=== PATIENT | female | born 1950 | race Hispanic/Latino ===

== ENCOUNTER → 2018-09-19 | Outpatient (CLI) | payer OTHER | END | disposition home or self-care (01) | LOC: OIH 16:26 | PROVIDERS: ATTEND Family Medicine | DX: M53.3 Sacrococcygeal disorders, not elsewhere classified (principal) | CPT/HCPCS: 72220 ==

== ENCOUNTER → 2019-06-24 | Outpatient (CLI) | payer OTHER | END | disposition home or self-care (01) | LOC: SHCH 14:22 | PROVIDERS: ATTEND Internal Medicine Cardiovascular Disease | DX: I08.0 Rheumatic disorders of both mitral and aortic valves (principal); R55 Syncope and collapse; I49.5 Sick sinus syndrome | CPT/HCPCS: 93306; 93970 ==

== ENCOUNTER → 2020-04-06 | Outpatient (CLI) | payer OTHER | END | disposition home or self-care (01) | LOC: OIH 14:54 | PROVIDERS: ATTEND Internal Medicine Cardiovascular Disease | DX: Z13.6 Encounter for screening for cardiovascular disorders (principal) | CPT/HCPCS: 75571 ==

== ENCOUNTER → 2020-07-21 | Outpatient (CLI) | payer MEDICARE | END | disposition home or self-care (01) | LOC: OIH 13:06 | PROVIDERS: ATTEND Internal Medicine | DX: M19.042 Primary osteoarthritis, left hand (principal); M19.041 Primary osteoarthritis, right hand ==

== ENCOUNTER → 2021-03-07 | Outpatient (CLI) | payer MEDICARE | END | disposition home or self-care (01) | LOC: SHCH 08:56 | PROVIDERS: ATTEND Internal Medicine Cardiovascular Disease | DX: I08.3 Combined rheumatic disorders of mitral, aortic and tricuspid valves (principal); R55 Syncope and collapse; E78.5 Hyperlipidemia, unspecified | CPT/HCPCS: 93306; 93356 ==

== ENCOUNTER → 2022-01-13 | Outpatient (CLI) | payer MEDICARE | END | disposition home or self-care (01) | LOC: RAH 13:17 | PROVIDERS: ATTEND Physician Assistant | DX: M41.85 Other forms of scoliosis, thoracolumbar region (principal); M54.16 Radiculopathy, lumbar region | CPT/HCPCS: 72082 ==

== ENCOUNTER → 2022-06-19 | Outpatient (CLI) | payer MEDICARE | END | disposition home or self-care (01) | LOC: RAH 07:37 | PROVIDERS: ATTEND Internal Medicine Gastroenterology | DX: R14.0 Abdominal distension (gaseous) (principal); R68.81 Early satiety | CPT/HCPCS: 78264; A9541 ==

== ENCOUNTER → 2022-10-26 | Outpatient (CLI) | payer MEDICARE ==
[2022-10-26 16:46] LABS: CHOLESTEROL 209 mg/dL (<200); HDL CHOLESTEROL 65 mg/dL (35-85); LDL DIRECT 127 mg/dL (0-99); TRIGLYCERIDES 145 mg/dL (30-200)
== END | disposition home or self-care (01) ==
LOC: LAB 11:44
PROVIDERS: ATTEND Physician Assistant
DX: I10 Essential (primary) hypertension (principal); E78.5 Hyperlipidemia, unspecified
CPT/HCPCS: 36415; 80061

== ENCOUNTER 2023-07-30 04:58 | Observation (INO) | payer MEDICARE ==
[2023-07-25 10:20] VITALS: BP 139/76; PULSE 88; RESP 19
[2023-07-25 13:06] LABS: APPEARANCE,URINE CLEAR (CLEAR); BILIRUBIN,URINE NEGATIVE (NEGATIVE); COLOR,URINE LIGHT-YELLOW (YELLOW); GLUCOSE, URINE (UA) NEGATIVE (NEGATIVE); KETONES,URINE NEGATIVE (NEGATIVE); LEUKOCYTE ESTERASE ,URINE NEGATIVE Leu/uL (NEGATIVE); NITRATE,URINE NEGATIVE (NEGATIVE); PROTEIN,URINE NEGATIVE (NEGATIVE); UROBILINOGEN,URINE 0.2 mg/dL (0.2-1.0)
[2023-07-25 13:15] LABS: ADD UA MICROSCOPIC YES
[2023-07-25 13:19] LABS: BACTERIA,URINE RARE /HPF (None Seen); MUCUS,URINE RARE LPF (None Seen); SQUAMOUS EPITHELIAL CELL,UR RARE /HPF (0-2); WBC,URINE 0-1 /HPF (0-1)
[2023-07-30] VITALS (37 sets, daily range): BP systolic 99–141; BP diastolic 59–87; PULSE 66–102; RESP 13–17; O2SAT 99
[~2023-07-30] VITALS: Ht 158.8 cm; Wt 75.8 kg
[~2023-07-30 04:58] MED LIST: CALC-987 PO; FLEC50TA3 PO; LEVO75CA5 PO; MELO-108 PO; MV-M1TAB57 PO; ROSU5TAB12 PO; VITAMIN B12 PO; ZINC50TA64 PO
[2023-07-30] MEDS ORDERED: LACTATED RINGERS 1000ML 1,000 ML IV ONE (06:14)
[2023-07-30] MEDS ORDERED: 0.9%NACL 48.45 ML, ROPIVACAINE 0.5% 49.25ML, EPINEPH 0.5MG KETOROLAC 30MG,CLONIDINE 80MCG IV PRN ×5 (07:00)
[2023-07-30] MEDS: CEFAZOLIN SODIUM 2 GM VIAL ONE ×2 (07:01→12:23)
[2023-07-30] MEDS ORDERED: PROPOFOL 10 MG/ML 20ML VIAL IV ONE (11:05)
[2023-07-30] MEDS ORDERED: FENTANYL CITRATE PF 50 MCG/1 ML 2ML VIAL ONE ×2 (11:05→11:26)
[2023-07-30] MEDS ORDERED: MIDAZOLAM HCL 1 MG/ML 2ML VIAL ONE (11:05)
[2023-07-30] MEDS ORDERED: GENTAMICIN SULFATE 80 MG/2 ML VIAL ONE (11:15)
[2023-07-30] MEDS ORDERED: CEFAZOLIN SODIUM 1 GM VIAL ONE (11:15)
[2023-07-30] MEDS ORDERED: PROPOFOL 1000 MG/100 ML 100 ML IV ONE (11:24)
[2023-07-30] MEDS ORDERED: PHENYLEPHRINE HCL 10 MG/ML 1ML VIAL IV ONE (11:47)
[2023-07-30] MEDS ORDERED: ONDANSETRON 4MG INJ ONE (11:53)
[2023-07-30] MEDS: TRANEXAMIC ACID 1000MG/10ML ONE ×2 (11:55→12:15)
[2023-07-30] MEDS ORDERED: MEPERIDINE-PF 25 MG/ML SYG ONE ×2 (14:32→14:43)
[2023-07-30] MEDS: 0.9%NACL 1000ML 1,000 ML IV SCH (20:55)
[2023-07-30] MEDS ORDERED: ACETAMINOPHEN 325 MG TAB PO SCH (21:00)
[2023-07-30] MEDS ORDERED: MAG/ALUM/SIMETH 30 ML UDCUP PO PRN (21:00)
[2023-07-30] MEDS ORDERED: TRAMADOL HCL 50 MG TABLET PO PRN (21:00)
[2023-07-30] MEDS ORDERED: NON-FORMULARY MEDICATION 1 EACH (Rosuvastatin Calcium 5 MG) PO SCH (21:00)
[2023-07-30] MEDS ORDERED: BENZOCAINE/MENTH/CETYLPYRD CL 1 EACH LOZENGE MM PRN (21:00)
[2023-07-30] MEDS ORDERED: DIPHENOXYLATE HCL/ATROPINE 2.5/0.025 MG TAB PO PRN (21:00)
[2023-07-30] MEDS ORDERED: DiphenhydrAMINE HCL 50 MG/ML VIAL IM PRN (21:00)
[2023-07-30] MEDS ORDERED: LACTULOSE 20 GM/30 ML UDCUP PO PRN (21:00)
[2023-07-30] MEDS ORDERED: ACETAMINOPHEN 325 MG TAB PO PRN ×2 (21:00)
[2023-07-30] MEDS ORDERED: HYDROMORPHONE PCA 10 MG/50 ML 50 ML IV PRN (21:00)
[2023-07-30] MEDS ORDERED: DIPHENHYDRAMINE HCL 25 MG CAPSULE PO SCH (21:00)
[2023-07-30] MEDS ORDERED: FLECAINIDE ACETATE 50 MG PO SCH (21:00)
[2023-07-30] MEDS ORDERED: ONDANSETRON 4MG INJ IVP PRN (21:00)
[2023-07-30] MEDS: CEFAZOLIN SODIUM 2 GM VIAL IVPB SCH (21:21)
[2023-07-30] MEDS: ATORVASTATIN 20 MG TABLET PO SCH (21:21)
[2023-07-30] MEDS: FLECAINIDE ACETATE 100 MG TABLET PO SCH (21:21)
[2023-07-31] VITALS (9 sets, daily range): BP systolic 99–130; BP diastolic 53–78; PULSE 80–100; RESP 16–20; O2SAT 94–97
[2023-07-31 03:53] LABS: HEMATOCRIT 35.6 % (36-48); MEAN CORPUSCULAR HEMOGLOBIN 30.3 pg (27.0-33.0); MEAN CORPUSCULAR HGB CONC 32.3 g/dL (32.0-36.0); MEAN CORPUSCULAR VOLUME 93.7 fL (79-99); RED BLOOD CELL COUNT(AUTO) 3.8 MIL/uL (4.00-5.50); RED CELL DISTRIBUTION WIDTH 13.9 % (11.0-15.5); WHITE BLOOD COUNT (AUTO) 7.6 K/uL (4.8-10.8)
[2023-07-31] MEDS: CEFAZOLIN SODIUM 2 GM VIAL IVPB SCH (04:13)
[2023-07-31 04:16] LABS: HEMOGLOBIN A1C 5.6 % (4.0-6.0)
[2023-07-31 04:30] LABS: CREATININE 0.7 mg/dL (0.5-1.5); THYROID STIMULATING HORMONE 1.36 uIU/mL (0.36-3.74)
[2023-07-31] MEDS: LEVOTHYROXINE 75 MCG TABLET PO SCH (06:02)
[2023-07-31] MEDS: 0.9%NACL 1000ML 1,000 ML IV SCH ×2 (07:00→19:57)
[2023-07-31] MEDS ORDERED: NON-FORMULARY MEDICATION 1 EACH (Levothyroxine Sodium (Levothyroxine) 75 MCG) PO SCH (07:30)
[2023-07-31] MEDS: FLECAINIDE ACETATE 100 MG TABLET PO SCH ×2 (08:40→19:51)
[2023-07-31] MEDS: RIVAROXABAN 10 MG TABLET PO SCH (08:40)
[2023-07-31] MEDS: ATORVASTATIN 20 MG TABLET PO SCH (19:50)
[2023-08-01] MEDS: 0.9%NACL 1000ML 1,000 ML IV SCH (02:33)
[2023-08-01 04:33] LABS: HEMATOCRIT 32.9 % (36-48); MEAN CORPUSCULAR HEMOGLOBIN 31.3 pg (27.0-33.0); MEAN CORPUSCULAR HGB CONC 33.7 g/dL (32.0-36.0); MEAN CORPUSCULAR VOLUME 92.7 fL (79-99); RED BLOOD CELL COUNT(AUTO) 3.55 MIL/uL (4.00-5.50); WHITE BLOOD COUNT (AUTO) 8.4 K/uL (4.8-10.8)
[2023-08-01 04:52] LABS: CREATININE 0.6 mg/dL (0.5-1.5); POTASSIUM 3.5 mmol/L (3.5-5.1)
[2023-08-01 05:00] VITALS: BP 125/74; PULSE 102; RESP 20
[2023-08-01] MEDS: LEVOTHYROXINE 75 MCG TABLET PO SCH (05:00)
[2023-08-01 08:00] VITALS: BP 129/70; PULSE 88; RESP 18
[2023-08-01] MEDS: RIVAROXABAN 10 MG TABLET PO SCH (08:36)
[2023-08-01] MEDS: FLECAINIDE ACETATE 100 MG TABLET PO SCH (08:38)
[2023-08-01 08:42] VITALS: O2SAT 93
[2023-08-01 11:59] VITALS: BP 123/72; PULSE 89; RESP 18
== END 2023-08-01 15:10 ==
LOC: DAH 04:58 → DAHIP 04:59 → DAH 04:59 → 4BH 19:55
PROVIDERS: ADMIT Orthopaedic Surgery; ATTEND Orthopaedic Surgery
DX: M17.11 Unilateral primary osteoarthritis, right knee (principal); E11.9 Type 2 diabetes mellitus without complications; E78.5 Hyperlipidemia, unspecified; E03.9 Hypothyroidism, unspecified; M81.0 Age-related osteoporosis without current pathological fracture; I48.91 Unspecified atrial fibrillation; I10 Essential (primary) hypertension; M41.9 Scoliosis, unspecified; Z85.3 Personal history of malignant neoplasm of breast; Z90.710 Acquired absence of both cervix and uterus; Z87.19 Personal history of other diseases of the digestive system; Z90.12 Acquired absence of left breast and nipple; Z79.899 Other long term (current) drug therapy
CPT/HCPCS: 87088; 81001; 87641; 27447; 96365; 96366 ×3; 96375; 97161; 97012; 97116 ×5; 97530 ×11; 93005; 96376; 83036; 84443; 80061; 80048 ×2; 85027 ×2; 36415 ×2; A6260; G0378 ×45; A4510; A4663; J7120 ×2; A4215 ×2; A4649 ×3; J3010 ×2; J0690 ×4; J3490; J1170; J1580; J2250; J2704; J2405; J2175 ×2; J2371; A6223; C1763 ×2; C1776; A5120; A4223; A4222; A4221; A6450; J7030

== ENCOUNTER → 2023-10-12 | Outpatient (CLI) | payer MEDICARE ==
[2023-10-12 12:23] LABS: BASOPHILS # (AUTO) 0.01 K/uL (0.00-0.20); BASOPHILS % (AUTO) 0.2 % (0.0-5.0); EOSINOPHILS # (AUTO) 0.08 K/uL (0.00-0.70); EOSINOPHILS % (AUTO) 1.9 % (0.0-8.0); HEMATOCRIT 43.1 % (36-48); IMMATURE GRANULOCYTE ABSOLUTE 0.02 K/uL (0-1); LYMPHOCYTES # (AUTO) 1.3 K/uL (1.0-4.8); LYMPHOCYTES % (AUTO) 30.2 % (21.0-51.0); MEAN CORPUSCULAR HEMOGLOBIN 30.1 pg (27.0-33.0); MEAN CORPUSCULAR VOLUME 94.1 fL (79-99); MONOCYTES # (AUTO) 0.2 K/uL (0.1-1.0); MONOCYTES % (AUTO) 5.5 % (3.0-13.0); NEUTROPHILS # (AUTO) 2.6 K/uL (1.8-7.7); NEUTROPHILS % (AUTO) 61.7 % (40.0-77.0); PLATELET COUNT (AUTO) 242 K/uL (130-400); RED BLOOD CELL COUNT(AUTO) 4.58 MIL/uL (4.00-5.50); RED CELL DISTRIBUTION WIDTH 13.6 % (11.0-15.5); WHITE BLOOD COUNT (AUTO) 4.2 K/uL (4.8-10.8)
[2023-10-12 13:15] LABS: ALBUMIN 3.7 g/dL (3.5-5.0); BILIRUBIN,TOTAL 0.7 mg/dL (0.2-1.0); CREATININE 0.7 mg/dL (0.5-1.0); POTASSIUM 3.7 mmol/L (3.5-5.1); TOTAL PROTEIN, SERUM 7.2 g/dL (6.0-8.3)
== END | disposition home or self-care (01) ==
LOC: LAB 11:40
PROVIDERS: ATTEND Internal Medicine Cardiovascular Disease
DX: I49.3 Ventricular premature depolarization (principal); R79.89 Other specified abnormal findings of blood chemistry; E78.5 Hyperlipidemia, unspecified
CPT/HCPCS: 36415; 80053; 80061; 85025

== ENCOUNTER → 2023-10-31 | Outpatient (CLI) | payer MEDICARE ==
[2023-10-31 12:26] LABS: ALBUMIN 3.8 g/dL (3.5-5.0); BILIRUBIN,TOTAL 0.6 mg/dL (0.2-1.0); CREATININE 0.7 mg/dL (0.5-1.0); POTASSIUM 3.8 mmol/L (3.5-5.1); TOTAL PROTEIN, SERUM 7.2 g/dL (6.0-8.3)
== END | disposition home or self-care (01) ==
LOC: LAB 11:15
PROVIDERS: ATTEND Internal Medicine Cardiovascular Disease
DX: I10 Essential (primary) hypertension (principal); E78.5 Hyperlipidemia, unspecified
CPT/HCPCS: 36415; 80053

== ENCOUNTER → 2023-11-27 | Outpatient (CLI) | payer MEDICARE ==
[2023-11-27 16:32] LABS: CHOLESTEROL 167 mg/dL (<200); HDL CHOLESTEROL 74 mg/dL (35-85); LDL DIRECT 75 mg/dL (0-99); TRIGLYCERIDES 184 mg/dL (30-200)
== END | disposition home or self-care (01) ==
LOC: LAB 11:07
PROVIDERS: ATTEND Internal Medicine Cardiovascular Disease
DX: I10 Essential (primary) hypertension (principal); E78.5 Hyperlipidemia, unspecified
CPT/HCPCS: 36415; 80061

== ENCOUNTER → 2024-04-14 | Outpatient (CLI) | payer MEDICARE ==
[~2024-04-14] MED LIST changes: -ROSU5TAB12 PO; +ROSU5TAB43 PO
== END | disposition home or self-care (01) ==
LOC: SHCH 14:40
PROVIDERS: ATTEND Internal Medicine Cardiovascular Disease
DX: I87.2 Venous insufficiency (chronic) (peripheral) (principal)
CPT/HCPCS: 93970

== ENCOUNTER → 2024-09-15 | Outpatient (CLI) | payer MEDICARE ==
[~2024-09-15] MED LIST changes: -ROSU5TAB43 PO; +ROSU5TAB51 PO
--- NOTE | 2024-09-19 14:36 | HMCSR ---
APPROVED REPORT EXAM: Two-dimensional and M-mode echocardiogram with Doppler and color Doppler. INDICATION ICD: Premature ventricular complexes I49.3 2D Dimensions RVDd4.6 cmLVEF(%)65.3 (>50%)LVED Vol(simp.)82.0 mL IVSd0.8 (0.7-1.1cm)FS(%)35 %LVES Vol(simp.)52.0 mL LVDd3.8 (3.8-5.6cm)LA (2D)3.6 (1.6-4.0cm)LVEF(%, simp.)63 % PWd0.7 (0.7-1.1cm)Ao Root(2D)2.6 (2.0-3.7cm)LA ESV INDEX (BP)28.57 mL/m2 LVDs2.4 (2.5-4.0cm)LVOT diam1.9 (1.8-2.4cm) IVC diam1.3 cm Aortic Valve AoV Vmax1.6 m/Brennen Peak GR10.3 mmHgLVOT Vmax1.1 m/s AoV VTI0.3 mAo Mean GR5.9 mmHgLVOT VTI0.23 m KELBY (VMAX)1.9 cm2Al P1/2T530 msAVA (VTI) 1.9 cm2 Mitral Valve MV E Vmax82.9 cm/sDECEL Azne967 ms MV A Vmax78.9 cm/s E/A ratio1.1 MR Max PG78 mmHg TDI E/E' Medial8.2E/E' Lateral6.5 Pulmonary Valve PV Vmax0.9 m/sPV VTI0.19 mPV Mean GR2 mmHg PV Peak GR3.0 mmHg Tricuspid Valve TR Vmax2.9 m/sRAP (EST) 3 nwBoQLMM52.6 mmHg TR Peak GR33.6 mmHg Left Ventricle Left ventricular cavity size is normal. There is normal LV segmental wall motion. There is normal lef t ventricular wall thickness. LVEF is 60-65%. Left ventricular filling pattern is normal for age. Right Ventricle The right ventricle is normal size. The right ventricular systolic function is normal. Atria The left atrium size is normal. The right atrium is mildly dilated. Aortic Valve Aortic valve is trileaflet. Aortic valve leaflets are sclerotic but open well. Trace aortic regurgita tion. There is no aortic valvular stenosis. Mitral Valve Mitral valve leaflets are sclerotic but open well. Mitral regurgitation is trace to mild. There is no mitral valve stenosis. Tricuspid Valve The tricuspid valve leaflets appear normal. There is mild tricuspid regurgitation. Right ventricular systolic pressure is estimated at 30-40 mmHg. Pulmonic Valve Pulmonic valve leaflets appear normal. There is trivial pulmonic regurgitation. Great Vessels The aortic root is normal in size. The IVC is normal in size and collapses >50% with inspiration. Pericardium No pericardial effusion. Conclusion LVEF is 60-65%. There is normal LV segmental wall motion. Aortic valve is trileaflet. Aortic valve leaflets are sclerotic but open well. Mitral regurgitation is trace to mild. LVEF is 60-65%. Aortic valve is trileaflet. Aortic valve leaflets are sclerotic but open well. The aortic root is normal in size.
== END | disposition home or self-care (01) ==
LOC: SHCH 14:28
PROVIDERS: ATTEND Internal Medicine Cardiovascular Disease
DX: I08.8 Other rheumatic multiple valve diseases (principal); I49.3 Ventricular premature depolarization
CPT/HCPCS: 93306

== ENCOUNTER → 2025-02-24 | Outpatient (CLI) | payer MEDICARE ==
[~2025-02-24] MED LIST changes: -LEVO75CA5 PO; +LEVO75CA6 PO
--- NOTE | 2025-02-24 19:07 | HMCIMG ---
CLINICAL INFORMATION Hydronephrosis COMPARISON None. TECHNIQUE Volumetric helical CT images of the abdomen and pelvis without contrast FINDINGS Liver: Normal. Gallbladder: No calcified gallstones or sludge. No wall thickening. Biliary System: Non-dilated. Pancreas: Normal. Spleen: Normal. Adrenals: Normal. Kidneys: Normal right kidney. Fluid attenuation structures in the left renal pelvis, may reflect parapelvic cysts or hydronephrosis. Normal caliber of the left renal cortex. Ureters: Normal course and caliber. Bladder: Normal. Pelvis: Prior hysterectomy. Stomach: Normal. Duodenum: Normal. Small Bowel: Normal. Colon: Sigmoid diverticulosis without inflammation. Appendix: Normal. Lymph Nodes: No lymphadenopathy. Peritoneum: No ascites or free air. Retroperitoneum: Normal. Vessels: Normal. Abdominal Wall: Normal. Bones: Multilevel degenerative changes of the lumbar spine. No acute osseous findings. Lung Bases: Normal. Inferior Mediastinum: Normal. IMPRESSION Fluid attenuation structures in the left renal pelvis, may reflect parapelvic cysts or hydronephrosis. If there is persistent concern for hydronephrosis, consider CT urogram. However there is no perinephric inflammation or cortical thinning in the left kidney. Sigmoid diverticulosis without inflammation. /[place]
== END | disposition home or self-care (01) ==
LOC: RAH 11:27
PROVIDERS: ATTEND Internal Medicine Nephrology
DX: K57.30 Diverticulosis of large intestine without perforation or abscess without bleeding (principal); M47.816 Spondylosis without myelopathy or radiculopathy, lumbar region; N13.30 Unspecified hydronephrosis; Z90.710 Acquired absence of both cervix and uterus
CPT/HCPCS: 74176

== ENCOUNTER → 2025-04-21 | Outpatient (CLI) | payer MEDICARE ==
[~2025-04-21] MED LIST changes: -MV-M1TAB57 PO; +SULF500EC PO; -ZINC50TA64 PO
--- NOTE | 2025-04-21 14:29 | HMCIMG ---
Ankle series Comparison: Findings: Anatomic alignment is maintained. There is no acute fracture or dislocation. The soft tissues are swollen laterally. There are no erosive changes seen. The ankle mortise is intact. impression: No acute fracture or dislocation.soft tissue swelling is noted around the lateral malleolus /[place]
== END | disposition home or self-care (01) ==
LOC: RAH 11:18
PROVIDERS: ATTEND Internal Medicine Nephrology
DX: M25.471 Effusion, right ankle (principal); M25.571 Pain in right ankle and joints of right foot
CPT/HCPCS: 73610